=== PATIENT | female | born 1990 | race Caucasian/White ===

== ENCOUNTER 2019-01-30 18:37 | Inpatient (IN) | payer MEDICARE ==
[~2019-01-30] VITALS: Ht 157.5 cm; Wt 61.9 kg
--- NOTE | 2019-01-30 18:50 | NUR ---
PT TX FROM [facility]. PRESENTED TO [facility] FOR DIALYSIS TODAY BUT LEFT ARM SWOLLEN AND UNABLE TO PERFORM DIALYSIS. PT MEDICATED FOR PAIN [facility] WITH MULTIPLE DOSES OF DILAUDID. PT DROWSY, REQUIRING REPEATED STIMULATION TO MAINTAIN OXYGEN SATURATION AND OBTAIN HX
[2019-01-30] MEDS ORDERED: SODIUM CHLORIDE FLUSH 10ML SYR IVF ONE (19:00)
--- NOTE | 2019-01-30 19:34 | NUR ---
CONTINUE TO MONITOR PT. MORE AROUSED, REMAINS ON OXYGEN NASAL CANULA.
[2019-01-30 19:51] LABS: MEAN CORPUSCULAR HEMOGLOBIN 31.4 pg (27.0-34.8); MEAN CORPUSCULAR HGB CONC 33.9 g/dL (32.4-35.8); MEAN CORPUSCULAR VOLUME 92.5 fL (80-100); MEAN PLATELET VOLUME 7.7 fL (7.4-10.4); PLATELET COUNT 220 x10^3/uL (130-400); RED CELL DISTRIBUTION WIDTH 20.5 % (9.6-15.2)
[2019-01-30 20:00] LABS: ALANINE AMINOTRANSFERASE 9 U/L (12-78); ALBUMIN 3.6 g/dL (3.4-5.0); ALKALINE PHOSPHATASE 276 U/L (45-117); ANION GAP 16 mmol/L (5-15); BILIRUBIN,TOTAL 1.1 mg/dL (0.2-1.0); CALCIUM 9.2 mg/dL (8.5-10.1); CHLORIDE 90 mmol/L (98-107); TOTAL PROTEIN 7.2 g/dL (6.4-8.2)
[2019-01-30 20:01] LABS: BASOPHILS # (AUTO) 0.05 x10^3/uL (0-0.1); BASOPHILS % (AUTO) 1 % (0-1); EOSINOPHILS # (AUTO) 0.21 x10^3/uL (0-0.4); EOSINOPHILS % (AUTO) 4 % (1-7); LYMPHOCYTES # (AUTO) 0.82 x10^3/uL (1-3.4); LYMPHOCYTES % (AUTO) 17 % (22-44); MD MORPH REVIEW ONLY; MONOCYTES # (AUTO) 0.29 x10^3/uL (0.2-0.8); MONOCYTES % (AUTO) 6 % (2-9); NEUTROPHILS # (AUTO) 3.55 x10^3/uL (1.8-6.8); NEUTROPHILS % (AUTO) 72 % (42-75)
[2019-01-30 20:02] LABS: ANISOCYTOSIS 1+; POLYCHROMASIA 1+
[2019-01-30 20:03] LABS: MICROCYTOSIS 1+
[2019-01-30 20:04] LABS: <PLATELET ESTIMATE> ADEQUATE; <PLT MORPHOLOGY> NORMAL PLT MORPH; OVALOCYTES 1+
--- NOTE | 2019-01-30 20:17 | NUR ---
REPORT TO VANESA MACK. PT TO BE TRANSFERED TO FLOOR
--- NOTE | 2019-01-30 20:35 | NUR ---
HOSPITALIST AT BEDSIDE EXAMINING PT
[2019-01-30] MEDS ORDERED: ACETAMINOPHEN 325 MG TABLET PO PRN (21:00)
[2019-01-30] MEDS ORDERED: ONDANSETRON ODT 4 MG PO PRN (21:00)
[2019-01-30] MEDS ORDERED: LIDODERM 5% PATCH TD PRN (21:00)
[2019-01-30] MEDS ORDERED: POLYETHYLENE GLYCOL 17 GM PACKET PO PRN (21:00)
[2019-01-30 21:03] VITALS: BP 186/122
[2019-01-30] MEDS ORDERED: HYDROmorphone 2 MG/ML, 1ML IV ONE (22:00)
[2019-01-30 22:50] VITALS: BP 172/93
[2019-01-30] MEDS ORDERED: ALPR0.5T PO (23:30)
[2019-01-30] MEDS ORDERED: CARV25TA PO (23:30)
[2019-01-30] MEDS ORDERED: AMLO5TAB10 PO (23:30)
[2019-01-30] MEDS ORDERED: HYDR2TAB29 PO (23:30)
[2019-01-31] VITALS (9 sets, daily range): BP systolic 128–200; BP diastolic 90–115
[2019-01-31 05:00] LABS: ANION GAP 17 mmol/L (5-15); CALCIUM 9.1 mg/dL (8.5-10.1); CHLORIDE 90 mmol/L (98-107); MEAN CORPUSCULAR HEMOGLOBIN 31.6 pg (27.0-34.8); MEAN CORPUSCULAR HGB CONC 34.2 g/dL (32.4-35.8); MEAN CORPUSCULAR VOLUME 92.5 fL (80-100); MEAN PLATELET VOLUME 7.5 fL (7.4-10.4); PLATELET COUNT 193 x10^3/uL (130-400); RED BLOOD COUNT 2.28 x10^6/uL (3.82-5.3); RED CELL DISTRIBUTION WIDTH 20.5 % (9.6-15.2)
[2019-01-31 05:44] LABS: BASOPHILS # (AUTO) 0.03 x10^3/uL (0-0.1); BASOPHILS % (AUTO) 1 % (0-1); EOSINOPHILS # (AUTO) 0.22 x10^3/uL (0-0.4); EOSINOPHILS % (AUTO) 5 % (1-7); LYMPHOCYTES # (AUTO) 0.95 x10^3/uL (1-3.4); LYMPHOCYTES % (AUTO) 20 % (22-44); MD SCAN; MONOCYTES % (AUTO) 7 % (2-9); NEUTROPHILS # (AUTO) 3.13 x10^3/uL (1.8-6.8); NEUTROPHILS % (AUTO) 68 % (42-75)
[2019-01-31] MEDS ORDERED: DEXTROSE 50%, 50ML SYRINGE ONE (08:25)
[2019-01-31] MEDS ORDERED: DEXTROSE 50%, 50ML SYRINGE IVPush ONE (08:30)
[2019-01-31] MEDS ORDERED: NALOXONE 1 MG/ML, 2ML ONE (09:16)
[2019-01-31] MEDS ORDERED: FLUMAZENIL 0.1 MG/1 ML, 5ML ONE (09:16)
[2019-01-31] MEDS ORDERED: FENTANYL PF 100 MCG/2ML ONE (09:16)
[2019-01-31] MEDS ORDERED: MIDAZOLAM 1 MG/ML, 5ML ONE (09:16)
[2019-01-31] MEDS ORDERED: CARVEDILOL 25 MG TABLET ONE (11:27)
[2019-01-31] MEDS ORDERED: AMLODIPINE 5 MG TABLET ONE (11:27)
[2019-01-31] MEDS: AMLODIPINE 5 MG TABLET PO SCH ×2 (11:35→21:18)
[2019-01-31] MEDS: CARVEDILOL 25 MG TABLET PO SCH ×2 (11:36→18:21)
[2019-01-31] MEDS ORDERED: GLUCAGON 1 MG IM PRN (16:30)
[2019-01-31] MEDS ORDERED: DEXTROSE 4 GM TAB.CHEW PO PRN (16:30)
[2019-01-31] MEDS ORDERED: DEXTROSE 50%, 50ML SYRINGE IVPush PRN (16:30)
[2019-01-31] MEDS: MORPHINE SULFATE 4 MG/ML, 1ML IVPush PRN ×2 (18:21→22:48)
[2019-01-31] MEDS: SODIUM CHLORIDE FLUSH 10ML SYR IVF SCH (21:21)
[2019-02-01 02:09] VITALS: BP 178/99
[2019-02-01] MEDS: MORPHINE SULFATE 4 MG/ML, 1ML IVPush PRN ×5 (02:53→20:33)
[2019-02-01 05:25] VITALS: BP 173/98
[2019-02-01] MEDS: CARVEDILOL 25 MG TABLET PO SCH ×2 (05:26→18:03)
[2019-02-01 06:50] VITALS: BP 174/100
[2019-02-01 07:01] LABS: ALBUMIN 3.3 g/dL (3.4-5.0); ANION GAP 11 mmol/L (5-15); CALCIUM 8.6 mg/dL (8.5-10.1); CHLORIDE 95 mmol/L (98-107)
[2019-02-01 07:08] LABS: MEAN CORPUSCULAR HGB CONC 33.5 g/dL (32.4-35.8); MEAN CORPUSCULAR VOLUME 92.6 fL (80-100); MEAN PLATELET VOLUME 7.7 fL (7.4-10.4); PLATELET COUNT 218 x10^3/uL (130-400); RED BLOOD COUNT 2.39 x10^6/uL (3.82-5.3); RED CELL DISTRIBUTION WIDTH 19.5 % (9.6-15.2)
[2019-02-01 07:17] LABS: % IRON SATURATION 14 % (20-55); ALANINE AMINOTRANSFERASE 11 U/L (12-78); ALKALINE PHOSPHATASE 270 U/L (45-117); CREATININE 8.37 mg/dL (0.55-1.02); IRON LEVEL 31 mcg/dL (50-170); TOTAL IRON BINDING CAPACITY 229 mcg/dL (250-450); TOTAL PROTEIN 7.3 g/dL (6.4-8.2)
[2019-02-01 08:06] LABS: BASOPHILS # (AUTO) 0.03 x10^3/uL (0-0.1); BASOPHILS % (AUTO) 1 % (0-1); EOSINOPHILS # (AUTO) 0.18 x10^3/uL (0-0.4); EOSINOPHILS % (AUTO) 4 % (1-7); LYMPHOCYTES # (AUTO) 0.65 x10^3/uL (1-3.4); LYMPHOCYTES % (AUTO) 16 % (22-44); MD SCAN; MONOCYTES # (AUTO) 0.32 x10^3/uL (0.2-0.8); MONOCYTES % (AUTO) 8 % (2-9); NEUTROPHILS # (AUTO) 2.86 x10^3/uL (1.8-6.8); NEUTROPHILS % (AUTO) 71 % (42-75)
[2019-02-01] MEDS: SODIUM CHLORIDE FLUSH 10ML SYR IVF SCH ×2 (09:00→20:33)
[2019-02-01] MEDS: AMLODIPINE 5 MG TABLET PO SCH ×2 (11:53→20:34)
[2019-02-01 12:05] VITALS: BP 144/88
[2019-02-01 13:40] LABS: ALANINE AMINOTRANSFERASE 12 U/L (12-78); ALBUMIN 3.5 g/dL (3.4-5.0); ANION GAP 9 mmol/L (5-15); CHLORIDE 98 mmol/L (98-107); CREATININE 4.43 mg/dL (0.55-1.02)
[2019-02-01 13:43] LABS: ALKALINE PHOSPHATASE 289 U/L (45-117); BILIRUBIN,TOTAL 1.1 mg/dL (0.2-1.0)
[2019-02-01 13:44] LABS: MEAN CORPUSCULAR HEMOGLOBIN 30.5 pg (27.0-34.8); MEAN CORPUSCULAR HGB CONC 32.5 g/dL (32.4-35.8); MEAN CORPUSCULAR VOLUME 93.8 fL (80-100); MEAN PLATELET VOLUME 7.3 fL (7.4-10.4); PLATELET COUNT 228 x10^3/uL (130-400); RED BLOOD COUNT 2.79 x10^6/uL (3.82-5.3); RED CELL DISTRIBUTION WIDTH 20.2 % (9.6-15.2)
[2019-02-01 15:00] VITALS: BP 162/89
[2019-02-01 15:01] LABS: BASOPHILS # (AUTO) 0.03 x10^3/uL (0-0.1); BASOPHILS % (AUTO) 1 % (0-1); EOSINOPHILS # (AUTO) 0.16 x10^3/uL (0-0.4); EOSINOPHILS % (AUTO) 5 % (1-7); LYMPHOCYTES # (AUTO) 0.62 x10^3/uL (1-3.4); LYMPHOCYTES % (AUTO) 22 % (22-44); MD SCAN; MONOCYTES # (AUTO) 0.26 x10^3/uL (0.2-0.8); MONOCYTES % (AUTO) 9 % (2-9); NEUTROPHILS # (AUTO) 1.82 x10^3/uL (1.8-6.8); NEUTROPHILS % (AUTO) 63 % (42-75)
[2019-02-01 19:20] VITALS: BP 165/92
[2019-02-01] MEDS ORDERED: ERGOCALCIFEROL 50,000 UNIT CAPSULE PO SCH (23:00)
[2019-02-02] MEDS: MORPHINE SULFATE 4 MG/ML, 1ML IVPush PRN ×4 (00:42→12:56)
[2019-02-02] MEDS: TEMAZEPAM 15 MG CAPSULE PO PRN ×2 (00:48→22:33)
[2019-02-02 04:50] VITALS: BP 149/90
[2019-02-02] MEDS: CARVEDILOL 25 MG TABLET PO SCH ×2 (04:52→18:15)
[2019-02-02 07:03] VITALS: BP 161/88
[2019-02-02] MEDS: niFEDipine ER 60 MG TABLET.ER PO SCH ×2 (08:56→20:41)
[2019-02-02] MEDS: SODIUM CHLORIDE FLUSH 10ML SYR IVF SCH ×2 (08:58→20:41)
[2019-02-02] MEDS ORDERED: CALCITRIOL 0.5 MCG CAPSULE PO SCH (09:00)
[2019-02-02] MEDS: CINACALCET 30 MG TABLET PO SCH (09:00)
[2019-02-02] MEDS ORDERED: GLYCOPYRROLATE 0.2MG/1ML, 5ML ONE (09:06)
[2019-02-02] MEDS ORDERED: NEOSTIGMINE 1 MG/ML, 10ML ONE (09:06)
[2019-02-02] MEDS: SEVELAMER CARBONATE 800MG TAB PO SCH ×2 (12:00→17:00)
[2019-02-02 12:11] VITALS: BP 131/72
[2019-02-02] MEDS ORDERED: BUPIVACAINE/PF 0.5% ONE (13:48)
[2019-02-02] MEDS ORDERED: HEPARIN 1,000 UNITS/ML, 10ML ONE (13:48)
[2019-02-02] MEDS ORDERED: PROTAMINE SULFATE 10 MG/ML, 5ML ONE (13:48)
[2019-02-02] MEDS ORDERED: EPINEPHRINE 1 MG/ML, 1ML ONE (13:49)
[2019-02-02] MEDS ORDERED: MIDAZOLAM 1 MG/ML, 2ML ONE (13:58)
[2019-02-02] MEDS ORDERED: FENTANYL PF 250 MCG/5ML ONE (13:58)
[2019-02-02] MEDS ORDERED: DEXAMETHASONE 4 MG/ML, 1ML ONE ×2 (14:00→16:05)
[2019-02-02] MEDS ORDERED: VISIPAQUE 270 MG/ML, 50ML BOTTLE ONE (14:30)
[2019-02-02] MEDS ORDERED: OMNIPAQUE 350 MG/ML, 50 ML BOTTLE IV ONE (14:49)
[2019-02-02] MEDS ORDERED: FENTANYL PF 100 MCG/2ML IV PRN (15:00)
[2019-02-02] MEDS ORDERED: HALOPERIDOL 5 MG/ML IV PRN (15:00)
[2019-02-02] MEDS ORDERED: MEPERIDINE/PF 25MG/0.5ML IVPush PRN (15:00)
[2019-02-02] MEDS ORDERED: MORPHINE SULFATE 4 MG/ML, 1ML IVPush PRN (15:00)
[2019-02-02] MEDS ORDERED: hydrALAzine 20 MG/ML, 1ML IV PRN (15:00)
[2019-02-02] MEDS ORDERED: PROMETHAZINE 12.5 MG SUPP PR PRN (15:00)
[2019-02-02] MEDS ORDERED: DIAZEPAM 5 MG/ML, 2ML IVPush PRN (15:00)
[2019-02-02] MEDS ORDERED: ONDANSETRON 2MG/ML, 2ML IV PRN (15:00)
[2019-02-02] MEDS ORDERED: LABETALOL 5MG/ML, 20ML IV PRN (15:00)
[2019-02-02] MEDS ORDERED: ACETAMINOPHEN 325 MG TABLET PO PRN (15:00)
[2019-02-02] MEDS ORDERED: PROMETHAZINE 25 MG/ML, 1ML IV PRN (15:00)
[2019-02-02] MEDS ORDERED: EPHEDRINE 50 MG/ML, 1ML IVPush PRN (15:00)
[2019-02-02] MEDS ORDERED: ONDANSETRON ODT 8 MG PO PRN (15:00)
[2019-02-02] MEDS ORDERED: ALBUTEROL SULFATE 2.5 MG/3 ML NPPB PRN (15:00)
[2019-02-02] MEDS ORDERED: MIDAZOLAM 1 MG/ML, 2ML IV PRN (15:00)
[2019-02-02] MEDS ORDERED: ONDANSETRON 2MG/ML, 2ML ONE ×2 (16:05)
[2019-02-02] MEDS ORDERED: ROCURONIUM 10MG/ML,5ML ONE ×2 (16:05)
[2019-02-02] MEDS ORDERED: PROPOFOL 10 MG/ML, 20ML ONE (16:05)
[2019-02-02] MEDS ORDERED: HYDROmorphone 2 MG/ML, 1ML ONE ×2 (16:10→18:07)
[2019-02-02] MEDS ORDERED: FENTANYL PF 100 MCG/2ML ONE (16:11)
[2019-02-02] MEDS: HYDROmorphone 2 MG/ML, 1ML IVPush PRN ×4 (16:31→16:54)
[2019-02-02 17:33] VITALS: BP 128/72
[2019-02-02] MEDS: HYDROmorphone 1 MG/ML, 1ML INJ IV PRN (18:15)
[2019-02-02 19:43] VITALS: BP 121/67
[2019-02-03 00:22] VITALS: BP 133/75
[2019-02-03] MEDS ORDERED: HYDROmorphone 2 MG/ML, 1ML ONE ×3 (00:27→12:59)
[2019-02-03] MEDS: HYDROmorphone 1 MG/ML, 1ML INJ IV PRN ×3 (00:32→13:03)
[2019-02-03] MEDS: CARVEDILOL 25 MG TABLET PO SCH (06:09)
[2019-02-03 06:10] VITALS: BP 117/62
[2019-02-03 06:59] VITALS: BP 130/72
[2019-02-03] MEDS: SEVELAMER CARBONATE 800MG TAB PO SCH ×2 (08:00→12:00)
[2019-02-03] MEDS: SODIUM CHLORIDE FLUSH 10ML SYR IVF SCH (09:00)
[2019-02-03] MEDS: CINACALCET 30 MG TABLET PO SCH (09:00)
[2019-02-03 09:53] LABS: ANION GAP 9 mmol/L (5-15); CALCIUM 8.2 mg/dL (8.5-10.1); CHLORIDE 95 mmol/L (98-107)
[2019-02-03 09:55] LABS: CREATININE 8.21 mg/dL (0.55-1.02)
[2019-02-03 10:10] LABS: MEAN CORPUSCULAR HEMOGLOBIN 30.8 pg (27.0-34.8); MEAN CORPUSCULAR HGB CONC 33.1 g/dL (32.4-35.8); MEAN PLATELET VOLUME 7.4 fL (7.4-10.4); PLATELET COUNT 256 x10^3/uL (130-400); RED BLOOD COUNT 2.32 x10^6/uL (3.82-5.3); RED CELL DISTRIBUTION WIDTH 20.2 % (9.6-15.2)
[2019-02-03 10:31] LABS: BASOPHILS # (AUTO) 0.04 x10^3/uL (0-0.1); BASOPHILS % (AUTO) 1 % (0-1); EOSINOPHILS # (AUTO) 0.07 x10^3/uL (0-0.4); EOSINOPHILS % (AUTO) 1 % (1-7); LYMPHOCYTES # (AUTO) 0.59 x10^3/uL (1-3.4); LYMPHOCYTES % (AUTO) 11 % (22-44); MD SCAN; MONOCYTES # (AUTO) 0.24 x10^3/uL (0.2-0.8); MONOCYTES % (AUTO) 5 % (2-9); NEUTROPHILS # (AUTO) 4.25 x10^3/uL (1.8-6.8); NEUTROPHILS % (AUTO) 82 % (42-75)
[2019-02-03] MEDS ORDERED: CINA30TA2 PO ×3 (11:28→13:54)
[2019-02-03] MEDS ORDERED: ERGO500017 PO ×3 (11:28→13:54)
[2019-02-03] MEDS ORDERED: SEVE800T8 PO ×3 (11:28→13:54)
[2019-02-03] MEDS ORDERED: NIFE60TA13 PO ×3 (11:28→13:54)
[2019-02-03] MEDS: niFEDipine ER 60 MG TABLET.ER PO SCH (13:02)
== END 2019-02-03 15:40 | disposition home or self-care (01) | DRG 252 ==
LOC: ED 19:22 → EDIP 19:46 → 4WST 20:57
PROVIDERS: ADMIT Internal Medicine; ATTEND Internal Medicine
PROC: 02HV33Z Insertion of Infusion Device into Superior Vena Cava, Percutaneous Approach (ICD-10-PCS; 2019-01-31)
PROC: B5181ZA Fluoroscopy of Superior Vena Cava using Low Osmolar Contrast, Guidance (ICD-10-PCS; 2019-01-31)
PROC: B548ZZA Ultrasonography of Superior Vena Cava, Guidance (ICD-10-PCS; 2019-01-31)
PROC: 5A1D70Z Performance of Urinary Filtration, Intermittent, Less than 6 Hours Per Day (ICD-10-PCS; 2019-01-31)
PROC: 5A1D70Z Performance of Urinary Filtration, Intermittent, Less than 6 Hours Per Day (ICD-10-PCS; 2019-02-01)
PROC: 057Y3ZZ Dilation of Upper Vein, Percutaneous Approach (ICD-10-PCS; 2019-02-02)
PROC: B31J1ZZ Fluoroscopy of Left Upper Extremity Arteries using Low Osmolar Contrast (ICD-10-PCS; 2019-02-02)
PROC: 03CY0ZZ Extirpation of Matter from Upper Artery, Open Approach (ICD-10-PCS; principal; 2019-02-02 14:00)
PROC: 5A1D70Z Performance of Urinary Filtration, Intermittent, Less than 6 Hours Per Day (ICD-10-PCS; 2019-02-03)
DX: T82.868A Thrombosis due to vascular prosthetic devices, implants and grafts, initial encounter (principal); N18.6 End stage renal disease; I12.0 Hypertensive chronic kidney disease with stage 5 chronic kidney disease or end stage renal disease; E87.1 Hypo-osmolality and hyponatremia; R18.8 Other ascites; I16.0 Hypertensive urgency; D63.1 Anemia in chronic kidney disease; E87.5 Hyperkalemia; E87.6 Hypokalemia; J45.909 Unspecified asthma, uncomplicated; M77.9 Enthesopathy, unspecified; R04.0 Epistaxis; Y83.2 Surgical operation with anastomosis, bypass or graft as the cause of abnormal reaction of the patient, or of later complication, without mention of misadventure at the time of the procedure; Z82.49 Family history of ischemic heart disease and other diseases of the circulatory system; Z82.3 Family history of stroke; Z83.3 Family history of diabetes mellitus; Z99.2 Dependence on renal dialysis; Z88.5 Allergy status to narcotic agent; Z88.8 Allergy status to other drugs, medicaments and biological substances; Z91.041 Radiographic dye allergy status
CPT/HCPCS: 36415; 36556; 37248; 76937; 77001; 80047; 80048; 80053; 82306; 82728; 82962; 83540; 83550; 83735; 83880; 83970; 84100; 84703; 85025; 86704; 86706; 87340; 93990; 99156; 99157; 99285; C1725; C1894; G0378; J0171; J1100; J1170; J1644; J2250; J2405; J2704; J2710; J2720; J3010; J3490; Q9966; Q9967; C1751; C1757; J1642; J2310

== ENCOUNTER 2019-02-06 18:55 | Inpatient (IN) | payer MEDICARE ==
[~2019-02-06] VITALS: Ht 157.5 cm; Wt 61.0 kg
[~2019-02-06 18:55] MED LIST: ALPR0.5T PO; AMLO5TAB10 PO; CARV25TA PO; CINA30TA2 PO; ERGO500017 PO; HYDR2TAB29 PO; NIFE60TA13 PO; SEVE800T8 PO
[2019-02-06] MEDS ORDERED: HYDROmorphone 2MG TABLET PO ONE (20:30)
[2019-02-06] MEDS ORDERED: HYDROmorphone 2MG TABLET ONE (20:35)
--- NOTE | 2019-02-06 20:41 | NUR ---
PT MEDICATED FOR PAIN WITH 2MG DILAUDID PO. PT LEFT ARM ELEVATED WITH PILLOWS FOR COMFORT. PT NODDING IN AND OUT OF SLEEP AT THIS TIME. VSS AND WILL CONT TO MONITOR.
--- NOTE | 2019-02-06 21:18 | NUR ---
PT STATES THAT SHE VOMITTED WHILE IN THE BATHROOM AND STATES SHE VOMITTED HER DILAUDID UP AND NEEDS MORE. ERMD NOTIFIED AND NO ORDERS FOR ADDITIONAL MEDS.
[2019-02-06 22:20] VITALS: BP 151/85
[2019-02-06] MEDS ORDERED: hydrALAzine 20 MG/ML, 1ML IVPush PRN (22:30)
[2019-02-06] MEDS ORDERED: ACETAMINOPHEN 325 MG TABLET PO PRN (22:30)
[2019-02-06] MEDS ORDERED: PROMETHAZINE 25 MG/ML, 1ML IM PRN (22:30)
[2019-02-06] MEDS ORDERED: HYDROmorphone 2 MG/ML, 1ML IVPush PRN (22:30)
[2019-02-06] MEDS ORDERED: ERGOCALCIFEROL 50,000 UNIT CAPSULE PO SCH (22:30)
[2019-02-06] MEDS ORDERED: LABETALOL 5MG/ML, 20ML IVPush PRN (22:30)
[2019-02-06] MEDS: HEPARIN 5,000 UNITS/ML, 1ML SQ SCH (23:20)
[2019-02-06] MEDS: HYDROmorphone 2MG TABLET PO PRN (23:28)
[2019-02-07] MEDS: niFEDipine ER 60 MG TABLET.ER PO SCH ×4 (00:25→21:08)
[2019-02-07] MEDS: CARVEDILOL 25 MG TABLET PO SCH ×3 (00:25→21:00)
[2019-02-07 04:30] VITALS: BP 107/57
[2019-02-07] MEDS: HEPARIN 5,000 UNITS/ML, 1ML SQ SCH ×3 (05:30→22:30)
[2019-02-07 05:40] LABS: ANION GAP 11 mmol/L (5-15); CALCIUM 8.4 mg/dL (8.5-10.1); CHLORIDE 94 mmol/L (98-107)
[2019-02-07 08:22] VITALS: BP 101/58
[2019-02-07] MEDS: SEVELAMER CARBONATE 800MG TAB PO SCH ×3 (09:29→17:58)
[2019-02-07] MEDS: CINACALCET 30 MG TABLET PO SCH (09:30)
[2019-02-07] MEDS: HYDROmorphone 2MG TABLET PO PRN ×2 (09:34→18:38)
[2019-02-07] MEDS ORDERED: OMNIPAQUE 350 MG/ML, 100ML BOTTLE ONE (13:20)
[2019-02-07 16:18] VITALS: BP 121/68
[2019-02-07 20:07] VITALS: BP 97/52
[2019-02-08] MEDS: HYDROmorphone 2MG TABLET PO PRN ×2 (02:53→09:28)
[2019-02-08 02:55] VITALS: BP 111/68
[2019-02-08] MEDS: HEPARIN 5,000 UNITS/ML, 1ML SQ SCH ×2 (06:30→14:30)
[2019-02-08] MEDS: SEVELAMER CARBONATE 800MG TAB PO SCH ×2 (08:00→12:00)
[2019-02-08 08:34] VITALS: BP 114/65
[2019-02-08] MEDS: CINACALCET 30 MG TABLET PO SCH (09:00)
[2019-02-08 10:46] VITALS: BP 130/76
[2019-02-08] MEDS: niFEDipine ER 60 MG TABLET.ER PO SCH (10:46)
[2019-02-08] MEDS: CARVEDILOL 25 MG TABLET PO SCH (10:47)
[2019-02-08 11:26] LABS: MEAN CORPUSCULAR HEMOGLOBIN 30.7 pg (27.0-34.8); MEAN CORPUSCULAR HGB CONC 33.3 g/dL (32.4-35.8); MEAN CORPUSCULAR VOLUME 92.3 fL (80-100); MEAN PLATELET VOLUME 7.3 fL (7.4-10.4); PLATELET COUNT 261 x10^3/uL (130-400); RED CELL DISTRIBUTION WIDTH 19.5 % (9.6-15.2)
[2019-02-08 11:37] LABS: ANION GAP 13 mmol/L (5-15); CHLORIDE 93 mmol/L (98-107)
[2019-02-08 11:42] LABS: BASOPHILS # (AUTO) 0.03 x10^3/uL (0-0.1); BASOPHILS % (AUTO) 1 % (0-1); EOSINOPHILS # (AUTO) 0.24 x10^3/uL (0-0.4); EOSINOPHILS % (AUTO) 5 % (1-7); LYMPHOCYTES # (AUTO) 0.71 x10^3/uL (1-3.4); LYMPHOCYTES % (AUTO) 14 % (22-44); MD SCAN; MONOCYTES # (AUTO) 0.33 x10^3/uL (0.2-0.8); MONOCYTES % (AUTO) 7 % (2-9); NEUTROPHILS # (AUTO) 3.76 x10^3/uL (1.8-6.8); NEUTROPHILS % (AUTO) 74 % (42-75)
== END 2019-02-08 14:00 | disposition left against medical advice (07) | DRG 314 ==
LOC: ED 19:25 → EDIP 20:56 → 4EST 22:07
PROVIDERS: ADMIT Family Medicine; ATTEND Family Medicine
PROC: 5A1D70Z Performance of Urinary Filtration, Intermittent, Less than 6 Hours Per Day (ICD-10-PCS; principal; 2019-02-08)
DX: T82.858A Stenosis of other vascular prosthetic devices, implants and grafts, initial encounter (principal); N18.6 End stage renal disease; I12.0 Hypertensive chronic kidney disease with stage 5 chronic kidney disease or end stage renal disease; E87.1 Hypo-osmolality and hyponatremia; T82.7XXA Infection and inflammatory reaction due to other cardiac and vascular devices, implants and grafts, initial encounter; I51.3 Intracardiac thrombosis, not elsewhere classified; D63.1 Anemia in chronic kidney disease; G89.29 Other chronic pain; J45.909 Unspecified asthma, uncomplicated; F41.9 Anxiety disorder, unspecified; Z53.21 Procedure and treatment not carried out due to patient leaving prior to being seen by health care provider; Y83.2 Surgical operation with anastomosis, bypass or graft as the cause of abnormal reaction of the patient, or of later complication, without mention of misadventure at the time of the procedure; Z99.2 Dependence on renal dialysis; Z88.8 Allergy status to other drugs, medicaments and biological substances; Z88.6 Allergy status to analgesic agent; Z91.041 Radiographic dye allergy status; Z79.891 Long term (current) use of opiate analgesic; Z82.3 Family history of stroke; Z82.49 Family history of ischemic heart disease and other diseases of the circulatory system; Z83.3 Family history of diabetes mellitus; Y92.89 Other specified places as the place of occurrence of the external cause
CPT/HCPCS: 36415; 80048; 82040; 84100; 84702; 84703; 85025; 99285; G0378; Q9967